=== PATIENT | female | born 1960 | race African-American/Black ===

== ENCOUNTER 2017-08-04 20:18 | Emergency (ER) | payer OTHER ==
[~2017-08-04] VITALS: Ht 149.9 cm; Wt 56.0 kg
[2017-08-04 21:38] LABS: BASOPHILS % (AUTO) 0.7 % (0.0-2.0); EOSINOPHILS % (AUTO) 1.2 % (1.0-6.0); HEMATOCRIT 41.1 % (36-46); LYMPHOCYTES # (AUTO) 3.2 K/uL (1.0-4.8); LYMPHOCYTES % (AUTO) 40.9 % (22.0-44.0); MEAN CORPUSCULAR HEMOGLOBIN 31.1 pg (26.0-34.0); MEAN CORPUSCULAR HGB CONC 34.1 G/dL (31.0-37.0); MEAN CORPUSCULAR VOLUME 92 fL (80-100); MONOCYTES # (AUTO) 0.4 K/uL (0.1-1.0); MONOCYTES % (AUTO) 5.5 % (2.0-9.0); NEUTROPHILS % (AUTO) 51.7 % (40.0-70.0); PLATELET COUNT (AUTO) 302 K/uL (150-450); RED CELL DISTRIBUTION WIDTH 13.5 % (11.5-14.5)
[2017-08-04 21:45] LABS: ANION GAP 6 mmol/L (8-16); CALCIUM, TOTAL 9.4 mg/dL (8.8-10.5); CARBON DIOXIDE 29 mmol/L (22-29); CHLORIDE 100 mmol/L (98-107); CREATININE 0.79 mg/dL (0.60-1.30); GLOMERULAR FILTR. RATE CALC > 60 mL/min (>60); GLUCOSE,RANDOM 104 mg/dL (70-110); POTASSIUM 4.3 mmol/L (3.5-5.1); SODIUM SERUM 135 mmol/L (136-145); UREA NITROGEN, BLOOD 15 mg/dL (7-18)
[2017-08-04 21:55] LABS: AMPHET/METH SCREEN,URINE NEGATIVE (NEGATIVE); BARBITURATE SCREEN, URINE NEGATIVE (NEGATIVE); BENZODIAZEPINES SCREEN,URINE NEGATIVE (NEGATIVE); CANNABINOID SCREEN,URINE POSITIVE (NEGATIVE); COCAINE SCREEN,URINE NEGATIVE (NEGATIVE); METHADONE SCREEN, URINE NEGATIVE (NEGATIVE); OPIATE SCREEN,URINE NEGATIVE (NEGATIVE); PHENCYCLIDINE SCREEN,URINE NEGATIVE (NEGATIVE)
[2017-08-04 22:00] LABS: ALANINE AMINOTRANSFERASE 60 U/L (12-78); ALBUMIN 3.9 g/dL (3.4-5.0); ALKALINE PHOSPHATASE 110 U/L (46-116); ASPARTATE AMINOTRANSFERASE 36 U/L (15-37); BILIRUBIN,TOTAL 0.2 mg/dL (0.1-1.0); TOTAL PROTEIN, SERUM 7.9 g/dL (6.4-8.2)
[2017-08-04] MEDS ORDERED: FLUoxetine HCL 20 MG CAPSULE PO ONE (23:15)
[2017-08-04] MEDS ORDERED: LORazepam 1 MG TABLET PO ONE (23:15)
[2017-08-04 23:50] VITALS: BP 130/76
== END 2017-08-05 00:16 | disposition home or self-care (01) ==
LOC: EMS 20:20
DX: F22 Delusional disorders (principal); F41.9 Anxiety disorder, unspecified; R10.9 Unspecified abdominal pain; J45.909 Unspecified asthma, uncomplicated
CPT/HCPCS: 36415; 80053; 80307; 84703; 85025; 99284; G0480

== ENCOUNTER 2018-06-24 10:55 | Inpatient (IN) | payer MEDICAID ==
[~2018-06-24] VITALS: Ht 149.9 cm; Wt 47.5 kg
[2018-06-24] MEDS ORDERED: ZOLPIDEM TARTRATE 10 MG TABLET PO PRN (15:00)
[2018-06-24] MEDS ORDERED: PNEUMOCOCCAL VACCINE POLYVALENT 0.5 ML VIAL [PPSV23] IM ONE (15:00)
[2018-06-24 16:10] VITALS: BP 165/71
[2018-06-24] MEDS ORDERED: NICOTINE 14 MG/24 HOUR PATCH TD PRN (16:30)
[2018-06-24] MEDS ORDERED: IBUPROFEN 400 MG TABLET PO PRN (16:30)
[2018-06-24] MEDS ORDERED: MAGNESIUM HYDROXIDE SUSPENSION 30 ML UDCUP PO PRN (16:30)
[2018-06-24] MEDS ORDERED: DOCUSATE SODIUM 100 MG CAPSULE PO PRN (16:30)
[2018-06-24] MEDS ORDERED: MAG HYDROX/AL HYDROX/SIMETH ES 30 ML SUSPENSION UDCUP PO PRN (16:30)
[2018-06-24] MEDS ORDERED: LOPERAMIDE HCL 2 MG CAPSULE PO PRN (16:30)
[2018-06-24] MEDS ORDERED: ONDANSETRON HCL 4 MG TABLET PO PRN (16:30)
[2018-06-24] MEDS ORDERED: GuaiFENesin/D-METHORPHAN [SUGAR-FREE] 200-20MG/10 ML SYRUP UDCUP PO PRN (16:30)
[2018-06-24] MEDS ORDERED: CloNIDine HCL 0.1 MG TABLET PO PRN (16:30)
[2018-06-24] MEDS ORDERED: PETROLATUM,WHITE 28 GM JELLY TP PRN (16:30)
[2018-06-24] MEDS ORDERED: ALBUTEROL SULFATE HFA 90 MCG/PUFF 8 GM INHALER IH PRN (16:30)
[2018-06-24] MEDS ORDERED: ACETAMINOPHEN 325 MG TABLET PO PRN (16:30)
[2018-06-24] MEDS: AmLODIPine BESYLATE 5 MG TABLET PO SCH (16:44)
[2018-06-24 17:44] VITALS: BP 144/78
[2018-06-25 05:47] VITALS: BP 114/87
[2018-06-25 08:28] LABS: BASOPHILS % (AUTO) 0.5 % (0.0-2.0); EOSINOPHILS % (AUTO) 2.1 % (1.0-6.0); HEMATOCRIT 41.7 % (36-46); HEMOGLOBIN 13.8 g/dL (12.0-16.0); LYMPHOCYTES # (AUTO) 2.3 K/uL (1.0-4.8); LYMPHOCYTES % (AUTO) 46.9 % (22.0-44.0); MEAN CORPUSCULAR HEMOGLOBIN 31.4 pg (26.0-34.0); MEAN CORPUSCULAR HGB CONC 33.1 G/dL (31.0-37.0); MEAN CORPUSCULAR VOLUME 95 fL (80-100); MONOCYTES # (AUTO) 0.3 K/uL (0.1-1.0); NEUTROPHILS # (AUTO) 2.2 K/uL (1.8-7.7); NEUTROPHILS % (AUTO) 44.5 % (40.0-70.0); PLATELET COUNT (AUTO) 353 K/uL (150-450); RED BLOOD CELL COUNT(AUTO) 4.39 MIL/uL (4.00-5.20); RED CELL DISTRIBUTION WIDTH 13.6 % (11.5-14.5)
[2018-06-25] MEDS: LORazepam 2 MG TABLET PO PRN ×2 (08:43→16:04)
[2018-06-25] MEDS: AmLODIPine BESYLATE 5 MG TABLET PO SCH (08:43)
[2018-06-25 09:00] VITALS: BP 124/90
[2018-06-25 09:26] LABS: HEMOGLOBIN A1C 5.9 % (4.5-6.2)
[2018-06-25 10:32] LABS: ALANINE AMINOTRANSFERASE 42 U/L (12-78); ALBUMIN 3.4 g/dL (3.4-5.0); ALKALINE PHOSPHATASE 71 U/L (46-116); ANION GAP 13 mmol/L (8-16); ASPARTATE AMINOTRANSFERASE 30 U/L (15-37); BILIRUBIN,TOTAL 0.4 mg/dL (0.1-1.0); CALCIUM, TOTAL 8.9 mg/dL (8.8-10.5); CARBON DIOXIDE 25 mmol/L (22-29); CHLORIDE 103 mmol/L (98-107); CHOL/HDL RATIO 2.2 (3.9-5.7); CHOLESTEROL 205 mg/dL (131-200); CREATININE 0.79 mg/dL (0.60-1.30); FREE T4 (FREE THYROXINE) 0.93 ng/dL (0.76-1.46); GLOMERULAR FILTR. RATE CALC > 60 mL/min (>60); GLUCOSE,RANDOM 127 mg/dL (70-110); HDL CHOLESTEROL 95 mg/dL (40-60); LDL CHOL (CALC.) 100 mg/dL (0-130); POTASSIUM 3.6 mmol/L (3.5-5.1); SODIUM SERUM 141 mmol/L (136-145); TOTAL PROTEIN, SERUM 7.1 g/dL (6.4-8.2); TRIGLYCERIDES 48 mg/dL (15-150); UREA NITROGEN, BLOOD 15 mg/dL (7-18)
[2018-06-25] MEDS: FLUoxetine HCL 20 MG CAPSULE PO SCH (12:53)
[2018-06-25 16:08] VITALS: BP 136/76
[2018-06-25] MEDS: QUEtiapine FUMARATE 100 MG TABLET PO SCH (21:00)
[2018-06-26 00:24] VITALS: BP 124/73
[2018-06-26 08:13] VITALS: BP 126/88
[2018-06-26] MEDS: FLUoxetine HCL 20 MG CAPSULE PO SCH (09:04)
[2018-06-26] MEDS: AmLODIPine BESYLATE 5 MG TABLET PO SCH (09:04)
[2018-06-26] MEDS: NICOTINE 21 MG/24 HOUR PATCH TD SCH (12:31)
[2018-06-26 16:21] VITALS: BP 136/92
[2018-06-26] MEDS: LORazepam 2 MG TABLET PO PRN (20:56)
[2018-06-26] MEDS: HALOPERIDOL 5 MG TABLET PO PRN (20:56)
[2018-06-26] MEDS: QUEtiapine FUMARATE 100 MG TABLET PO SCH (20:57)
[2018-06-27 06:34] VITALS: BP 125/77
[2018-06-27 08:13] VITALS: BP 119/70
[2018-06-27] MEDS: FLUoxetine HCL 20 MG CAPSULE PO SCH (08:50)
[2018-06-27] MEDS: AmLODIPine BESYLATE 5 MG TABLET PO SCH (08:50)
[2018-06-27] MEDS: NICOTINE 21 MG/24 HOUR PATCH TD SCH (12:31)
[2018-06-27 16:15] VITALS: BP 125/75
[2018-06-27] MEDS: HALOPERIDOL 5 MG TABLET PO PRN (20:43)
[2018-06-27] MEDS: QUEtiapine FUMARATE 100 MG TABLET PO SCH (20:43)
[2018-06-27] MEDS: LORazepam 2 MG TABLET PO PRN (20:44)
[2018-06-28 06:20] VITALS: BP 117/73
[2018-06-28 08:24] VITALS: BP 139/78
[2018-06-28] MEDS: FLUoxetine HCL 20 MG CAPSULE PO SCH (09:14)
[2018-06-28] MEDS: AmLODIPine BESYLATE 5 MG TABLET PO SCH (09:14)
[2018-06-28] MEDS: NICOTINE 21 MG/24 HOUR PATCH TD SCH (09:15)
[2018-06-28 17:03] VITALS: BP 129/75
[2018-06-28] MEDS: QUEtiapine FUMARATE 100 MG TABLET PO SCH (20:04)
[2018-06-29 05:11] VITALS: BP 124/72
[2018-06-29] MEDS: LORazepam 2 MG TABLET PO PRN (06:53)
[2018-06-29] MEDS: HALOPERIDOL 5 MG TABLET PO PRN (06:53)
[2018-06-29] MEDS ORDERED: AMLO-511 PO (07:43)
[2018-06-29] MEDS ORDERED: QUET100T PO (07:43)
[2018-06-29] MEDS ORDERED: FLUO-191 PO (07:43)
[2018-06-29 08:29] VITALS: BP 135/74
[2018-06-29] MEDS: NICOTINE 21 MG/24 HOUR PATCH TD SCH (08:31)
[2018-06-29] MEDS: FLUoxetine HCL 20 MG CAPSULE PO SCH (08:31)
[2018-06-29] MEDS: AmLODIPine BESYLATE 5 MG TABLET PO SCH (08:31)
== END 2018-06-29 13:10 | disposition home or self-care (01) | DRG 750 ==
LOC: B3A 14:51
PROVIDERS: ADMIT Psychiatry & Neurology Psychiatry; ATTEND Psychiatry & Neurology Psychiatry
PROC: 3E0234Z Introduction of Serum, Toxoid and Vaccine into Muscle, Percutaneous Approach (ICD-10-PCS; principal; 2018-06-24)
PROC: 3E02340 Introduction of Influenza Vaccine into Muscle, Percutaneous Approach (ICD-10-PCS; 2018-06-24)
DX: F25.0 Schizoaffective disorder, bipolar type (principal); E78.5 Hyperlipidemia, unspecified; F41.9 Anxiety disorder, unspecified; R73.9 Hyperglycemia, unspecified; F12.10 Cannabis abuse, uncomplicated; H40.9 Unspecified glaucoma; I10 Essential (primary) hypertension; J45.909 Unspecified asthma, uncomplicated; Z23 Encounter for immunization
CPT/HCPCS: 83036; 84439; 84443; 87081; 90686; 90732

== ENCOUNTER 2018-11-08 10:54 | Emergency (ER) | payer MEDICAID, OTHER ==
[~2018-11-08] VITALS: Ht 149.9 cm; Wt 54.5 kg
[~2018-11-08 10:54] MED LIST: AMLO5TAB9 PO; FLUO-191 PO; QUET100T PO
[2018-11-08] MEDS ORDERED: IBUPROFEN 400 MG TABLET PO ONE (11:45)
[2018-11-08 12:36] VITALS: BP 116/78
== END 2018-11-08 12:30 | disposition home or self-care (01) ==
LOC: EMS 10:58
DX: B34.9 Viral infection, unspecified (principal); F32.9 Major depressive disorder, single episode, unspecified; I10 Essential (primary) hypertension; Z87.891 Personal history of nicotine dependence; Z79.899 Other long term (current) drug therapy
CPT/HCPCS: 93005

== ENCOUNTER 2020-10-29 16:27 | Emergency (ER) | payer OTHER ==
[~2020-10-29] VITALS: Ht 149.9 cm; Wt 78.2 kg
[~2020-10-29 16:27] MED LIST changes: +AMLO-257 PO; -AMLO5TAB9 PO; -FLUO-191 PO
[2020-10-29 16:29] VITALS: BP 131/69
== END 2020-10-29 18:18 | disposition home or self-care (01) ==
LOC: EMS 16:27
DX: E11.65 Type 2 diabetes mellitus with hyperglycemia (principal)
CPT/HCPCS: 82962; 99283

== ENCOUNTER 2024-07-25 13:03 | Emergency (ER) | payer OTHER ==
[~2024-07-25] VITALS: Ht 149.9 cm; Wt 61.3 kg
[2024-07-25 13:05] VITALS: TEMP 98.6
[2024-07-25 13:31] LABS: GLUCOMETER DEV NAME(LOC) ER.7; GLUCOSE,POINT OF CARE 96 MG/DL (70-110)
[2024-07-25] MEDS ORDERED: AMOX-457 PO (13:49)
[2024-07-25] MEDS: BACITRACIN 0.9 GM PACKET OINTMENT TP ONE (13:53)
[2024-07-25] MEDS: AMOX TR/POT CLAV 875 MG/125 MG TABLET PO ONE (13:53)
[2024-07-25] MEDS: PERTUSS(ACELL),DIPH,TET/PF 0.5 ML SYRINGE [ADULT] IM. ONE (13:54)
[2024-07-25] MEDS ORDERED: METF-446 PO (13:57)
[2024-07-25] MEDS ORDERED: TRAZ-257 PO (13:57)
[2024-07-25] MEDS ORDERED: SITA100 PO (13:57)
[2024-07-25] MEDS ORDERED: LORA10TA7 PO (13:57)
[2024-07-25] MEDS ORDERED: BIMA2.5D4 OU (13:57)
[2024-07-25] MEDS ORDERED: ATOR40TA71 PO (13:57)
[2024-07-25] MEDS ORDERED: BRIM5DRO28 OU (13:57)
[2024-07-25] MEDS ORDERED: LISI10TA24 PO (13:57)
[2024-07-25 14:10] VITALS: BP 150/92; PULSE 75; RESP 19; O2SAT 97
== END 2024-07-25 14:34 | disposition home or self-care (01) ==
LOC: EMS 13:08
DX: S61.551A Open bite of right wrist, initial encounter (principal); E11.9 Type 2 diabetes mellitus without complications; I10 Essential (primary) hypertension; J45.909 Unspecified asthma, uncomplicated; F32.A Depression, unspecified; Z79.899 Other long term (current) drug therapy; W54.0XXA Bitten by dog, initial encounter; Y93.89 Activity, other specified; Y92.89 Other specified places as the place of occurrence of the external cause; Y99.8 Other external cause status
CPT/HCPCS: 82962; 90471; 90715; 99283

== ENCOUNTER 2024-10-11 08:29 | Emergency (ER) | payer MEDICARE, OTHER ==
[~2024-10-11] VITALS: Ht 149.9 cm; Wt 47.7 kg
[~2024-10-11 08:29] MED LIST changes: -AMLO-257 PO; +AMOX-457 PO; +ATOR40TA71 PO; +BIMA2.5D4 OU; +BRIM5DRO28 OU; +LISI10TA24 PO; +LORA10TA7 PO; +METF-446 PO; -QUET100T PO; +SITA100 PO; +TRAZ-257 PO
[2024-10-11 08:43] VITALS: BP 135/78; PULSE 91; RESP 18; TEMP 98.1; O2SAT 99
[2024-10-11 10:04] LABS: PH,URINE DRUG SCREEN 6.5 (5.0-8.0)
[2024-10-11 10:13] LABS: ALCOHOL, URINE DRUG SCREEN NEGATIVE (NEGATIVE); AMPHET/METH SCREEN,URINE NEGATIVE (NEGATIVE); BARBITURATE SCREEN, URINE NEGATIVE (NEGATIVE); CANNABINOID SCREEN,URINE POSITIVE (NEGATIVE); COCAINE SCREEN,URINE NEGATIVE (NEGATIVE); METHADONE SCREEN, URINE NEGATIVE (NEGATIVE)
== END 2024-10-11 12:00 | disposition left against medical advice (07) ==
LOC: EMS 08:32
DX: T14.8XXA Other injury of unspecified body region, initial encounter (principal); Z53.21 Procedure and treatment not carried out due to patient leaving prior to being seen by health care provider; X58.XXXA Exposure to other specified factors, initial encounter
CPT/HCPCS: 80307

== ENCOUNTER 2024-11-22 17:36 | Emergency (ER) | payer MEDICARE, OTHER ==
[~2024-11-22] VITALS: Ht 149.9 cm; Wt 53.9 kg
[2024-11-22 17:52] VITALS: TEMP 97.9
[2024-11-22 18:11] LABS: GLUCOMETER DEV NAME(LOC) ER.7; GLUCOSE,POINT OF CARE 148 MG/DL (70-110)
[2024-11-22 18:26] LABS: APPEARANCE,URINE CLEAR (CLEAR); GLUCOSE, URINE (UA) NEGATIVE (NEGATIVE); LEUKOCYTE ESTERASE ,URINE TRACE (NEGATIVE); NITRATE,URINE NEGATIVE (NEGATIVE); OCCULT BLOOD,URINE TRACE (NEGATIVE); PH,URINE DRUG SCREEN 5.0 (5.0-8.0); SPECIFIC GRAVITIY, URINE 1.019 (1.003-1.030)
[2024-11-22 18:33] LABS: ALCOHOL, URINE DRUG SCREEN NEGATIVE (NEGATIVE); AMPHET/METH SCREEN,URINE NEGATIVE (NEGATIVE); BARBITURATE SCREEN, URINE NEGATIVE (NEGATIVE); CANNABINOID SCREEN,URINE POSITIVE (NEGATIVE); COCAINE SCREEN,URINE NEGATIVE (NEGATIVE); METHADONE SCREEN, URINE NEGATIVE (NEGATIVE)
[2024-11-22 18:39] LABS: SQUAMOUS EPITHELIAL CELL,UR Few /LPF (None Seen)
[2024-11-22 19:41] LABS: COVID AG,FIA SOURCE NASAL SWAB
[2024-11-22 19:43] LABS: PLATELET COUNT (AUTO) 282 K/uL (150-450); RED BLOOD CELL COUNT(AUTO) 4.54 MIL/uL (4.00-5.20); RED CELL DISTRIBUTION WIDTH 14.2 % (11.5-14.5); WHITE BLOOD COUNT (AUTO) 6.2 K/uL (4.5-11.0)
[2024-11-22 19:50] LABS: CALCIUM, TOTAL 8.6 mg/dL (8.8-10.5); CREATININE 0.80 mg/dL (0.60-1.30); GLOMERULAR FILTR. RATE CALC > 60 mL/min (>60); GLUCOSE,RANDOM 116 mg/dL (70-110); SODIUM SERUM 137 mmol/L (136-145); UREA NITROGEN, BLOOD 18 mg/dL (7-18)
[2024-11-22 19:59] LABS: SARS-COV2 (COVID) ANTIGEN,FIA Negative (Negative)
[2024-11-22] MEDS ORDERED: HYDR-4808 PO (20:24)
[2024-11-22 20:26] VITALS: BP 142/90; PULSE 97; RESP 16; O2SAT 98
== END 2024-11-22 20:26 | disposition home or self-care (01) ==
LOC: EMS 17:36
DX: L30.9 Dermatitis, unspecified (principal); F25.9 Schizoaffective disorder, unspecified; E11.9 Type 2 diabetes mellitus without complications; F32.A Depression, unspecified; I10 Essential (primary) hypertension; J45.909 Unspecified asthma, uncomplicated; Z87.891 Personal history of nicotine dependence; Z79.899 Other long term (current) drug therapy; Z20.822 Contact with and (suspected) exposure to COVID-19
CPT/HCPCS: 99284; 87426; 80048; 81001; 82962; 85025; 36415; 80307; G0480; 99283